=== PATIENT | female | born 1985 | race African-American/Black ===

== ENCOUNTER 2024-11-10 19:51 | Emergency (ER) | payer OTHER ==
[2024-11-10] MEDS: Dexamethasone 4 MG/ML SDV IM ONE (20:29)
== END 2024-11-10 20:35 | disposition home or self-care (01) ==
LOC: DL.ED 19:51
DX: M25.561 Pain in right knee (principal); M54.50 Low back pain, unspecified; G89.29 Other chronic pain; I10 Essential (primary) hypertension; Z79.899 Other long term (current) drug therapy; Z86.16 Personal history of COVID-19; Z90.49 Acquired absence of other specified parts of digestive tract
CPT/HCPCS: 96372; 99283; J1100